=== PATIENT | female | born 1975 | race Caucasian/White ===

== ENCOUNTER 2018-06-20 07:06 | Day surgery (SDC) | payer OTHER ==
[~2018-06-20 07:06] MED LIST: DICLOFENAC SODI50 MG PO; GABAPENTIN100 MG PO; MEDROLPACK PO; SYNTHROID150 MCG; TRAMADOL HCL50 MG PO
== END 2018-06-20 12:10 | disposition home or self-care (01) ==
LOC: CIR.AMB 07:06
DX: M51.27 Other intervertebral disc displacement, lumbosacral region (principal); M51.36 Other intervertebral disc degeneration, lumbar region; M48.57XA Collapsed vertebra, not elsewhere classified, lumbosacral region, initial encounter for fracture